=== PATIENT | female | born 1995 ===

== ENCOUNTER 2020-01-23 05:16 | Inpatient (IN) ==
[2020-01-23 06:06] LABS: Basophils % 0.2 %; Hematocrit 47.9 % (35.3-44.9); Hemoglobin 16.8 g/dL (11.5-15.4); Mean Corpuscular HGB Conc 35.1 g/dL (31.6-35.5); Mean Corpuscular Hemoglobin 32.1 pg (28.0-33.3)
[2020-01-23 06:08] LABS: Eosinophils % 0.3 %; Immature Granulocytes % 0.2 % (0-4); Immature Platelets 8.5 % (1.1-6.1); Lymphocytes # 1.3 K/mcL (0.6-4.6); Lymphocytes % 21.1 %; Mean Corpuscular Volume 91.6 fL (83.0-100.0); Mean Platelet Volume 11.6 fL (9.4-12.4); Monocytes # 0.4 K/mcL (0.0-1.3); Monocytes % 5.8 %; Neutrophils # 4.3 K/mcL (1.6-8.9); Platelet Count 50 K/mcL (140-400); Red Blood Count 5.23 M/mcL (3.82-4.97); Segmented Neutrophils % 72.4 %
[2020-01-23 06:21] LABS: Amphetamine Screen,Urine Negative ng/mL (Cutoff=1000); Barbiturate Screen,Urine Negative ng/mL (Cutoff=200)
[2020-01-23 06:22] LABS: Benzodiazepines Screen,Urine Negative ng/mL (Cutoff=300); Bilirubin,Urine Negative (Negative); Blood,Urine Negative (Negative); Cannabinoid Screen,Urine Negative ng/mL (Cutoff = 50); Clarity,Urine Clear (Clear); Cocaine Screen,Urine Negative ng/mL (Cutoff= 300); Color,Urine Yellow (Yellow); Glucose,Urine (UA) Normal (Normal); Ketones,Urine Negative (Negative); Leukocyte Esterase,Urine Negative (Negative); Nitrite,Urine Negative (Negative); Opiate Screen,Urine Negative ng/mL (Cutoff=300); Phencyclidine Screen,Urine Negative ng/mL (Cutoff=25); Protein,Urine Trace mg/dL (Neg-Trace); Specific Gravity,Urine 1.014 (1.010-1.025); Urobilinogen,Urine Normal (Normal)
[2020-01-23 06:28] LABS: Acetaminophen < 10 mcg/mL (10-20); Alanine Aminotransferase 40 Units/L (7-52); Albumin 4.5 g/dL (3.5-5.7); Albumin/Globulin Ratio 1.8 (1.1-2.2); Alkaline Phosphatase 68 Units/L (34-104); Aspartate Amino Transferase 38 Units/L (13-39); BUN/Creatinine Ratio 4 (6-26); Bilirubin,Direct 1.1 mg/dL (0.0-0.2); Bilirubin,Indirect 3.8 mg/dL (0.0-1.0); Bilirubin,Total 4.9 mg/dL (0.3-1.0); Blood Urea Nitrogen 4 mg/dL (6-20); Calcium 9.8 mg/dL (8.6-10.3); Carbon Dioxide 24 mEq/L (23-29); Chloride 107 mEq/L (98-107); Ethanol < 10 mg/dL (Less than 10); Globulin 2.5 g/dL (2.4-3.5); Glucose 86 mg/dL (70-105); Osmolality,Calculated 284 (280-300); Potassium 3.4 mEq/L (3.5-5.1); Salicylate < 2.5 mg/dL (15.0-30.0); Sodium 139 mEq/L (136-145); eGFR For African Americans > 60 (> 60); eGFR For Non-African Americans > 60 (> 60)
[2020-01-23] MEDS ORDERED: Mag Hydrox/Al Hydrox/Simeth 30 ML UDC PO PRN (08:53)
[2020-01-23] MEDS ORDERED: haloperidoL 5 MG TABLET PO PRN (08:53)
[2020-01-23] MEDS ORDERED: *HR* LORazepam 1 MG TABLET PO PRN (08:53)
[2020-01-23] MEDS ORDERED: Haloperidol Lactate 5 MG/ML VIAL IM PRN (08:53)
[2020-01-23] MEDS ORDERED: Ibuprofen 400 MG TABLET PO PRN (08:53)
[2020-01-23] MEDS ORDERED: *HR* LORazepam 2 MG/ML VIAL IM PRN (08:53)
[2020-01-23] MEDS ORDERED: MOM Conc 10 ML UD.LIQ PO PRN (08:53)
[2020-01-23] MEDS: Nicotine 2 MG GUM BC PRN ×2 (18:36→21:03)
[2020-01-23] MEDS ORDERED: Lactulose Oral Soln 20 GM/30 ML UDC PO SCH (21:00)
[2020-01-23] MEDS ORDERED: lamoTRIgine 25 MG TABLET PO SCH (21:00)
[2020-01-23] MEDS: hydrOXYzine pamoate 25 MG CAPSULE PO PRN (21:02)
[2020-01-23] MEDS: traZODone 50 MG TABLET PO PRN (21:02)
[2020-01-24 07:50] LABS: Chol/HDL Ratio 1.7 (0-4.9)
[2020-01-24 08:07] LABS: Estimated Average Glucose 74 mg/dl; Hemoglobin A1C 4.2 %
[2020-01-24] MEDS: hydrOXYzine pamoate 25 MG CAPSULE PO PRN ×2 (10:20→20:49)
[2020-01-24] MEDS: Lactulose Oral Soln 20 GM/30 ML UDC PO SCH ×2 (10:32→20:46)
[2020-01-24] MEDS: Nicotine 2 MG GUM BC PRN (17:02)
[2020-01-24] MEDS: traZODone 50 MG TABLET PO PRN (20:49)
[2020-01-25 08:10] VITALS: BP 103/66
[2020-01-25] MEDS: Lactulose Oral Soln 20 GM/30 ML UDC PO SCH (08:26)
[2020-01-25] MEDS: Nicotine 2 MG GUM BC PRN ×2 (08:46→10:57)
[2020-01-25] MEDS: hydrOXYzine pamoate 25 MG CAPSULE PO PRN (08:55)
== END 2020-01-25 12:50 | disposition home or self-care (01) | DRG 753 ==
LOC: EMEROOARM 05:16 → 1ANU 08:49
PROVIDERS: ADMIT Psychiatry & Neurology Psychiatry; ATTEND Psychiatry & Neurology Psychiatry